=== PATIENT | female | born 1975 | race Two or more races ===

== ENCOUNTER → 2017-02-07 | Outpatient (CLI) | payer OTHER ==
[2017-02-07 08:49] LABS: Urine Bilirubin Negative (Negative); Urine Blood TRACE /uL (Negative); Urine Color Yellow (Yellow); Urine Glucose Normal (Normal); Urine Ketone Negative (Negative); Urine Mucus FEW (None Seen); Urine Nitrite Negative (Negative); Urine RBC 1 /hpf (0 - 4); Urine Squamous Epithelial Cell FEW /hpf (<5); Urine Urobilinogen Normal (Negative)
[2017-02-07 09:16] LABS: Albumin 3.7 g/dL (3.4-5.0); BUN/Creatinine Ratio 27.3; Bilirubin, Total 0.6 mg/dL (0.2-1.0); Calcium 8.7 mg/dL (8.5-10.1); Potassium 3.9 mmol/L (3.5-5.1); Total Protein 7.5 g/dL (6.4-8.2)
== END | disposition home or self-care (01) ==
LOC: LAB 08:07
PROVIDERS: ATTEND Family Medicine
DX: I10 Essential (primary) hypertension (principal); E78.5 Hyperlipidemia, unspecified
CPT/HCPCS: 36415; 80053; 80061; 81001; 82043; 83036; 87086

== ENCOUNTER 2017-03-10 14:48 | Observation (INO) | payer OTHER ==
[~2017-03-10] VITALS: Ht 157.5 cm; Wt 86.2 kg
[2017-03-10 16:05] LABS: Basophils # (auto) 0.1 uL; Basophils % (auto) 0.6 % (0.0-2.0); Eosinophils # (auto) 0.1 uL; Eosinophils % (auto) 0.5 % (0.0-7.0); Hematocrit 43.6 % (36.0-46.0); Hemoglobin 14.9 g/dL (12.2-16.2); Lymphocytes # (auto) 1.4 uL; Lymphocytes % (auto) 11.8 % (10.0-50.0); Mean Corpuscular Hemoglobin 31.8 pg (28.0-32.0); Mean Corpuscular Hgb Conc. 34.2 g/dL (32.0-36.0); Mean Corpuscular Volume 93.1 fL (80.0-100.0); Monocytes % (auto) 8.3 % (0.0-12.0); Neutrophils # (auto) 9.3 uL; Neutrophils % (auto) 78.8 % (37.0-80.0); Platelet Count (auto) 342 10^3/uL (140-450); White Blood Cell 11.8 10^3/uL (4.4-10.8)
[2017-03-10 16:07] LABS: Urine Bilirubin Negative (Negative); Urine Blood 2+ /uL (Negative); Urine Color Yellow (Yellow); Urine Glucose Normal (Normal); Urine Ketone Negative (Negative); Urine Nitrite Negative (Negative); Urine RBC 1 /hpf (0 - 4); Urine Squamous Epithelial Cell FEW /hpf (<5); Urine Urobilinogen Normal (Negative)
[2017-03-10 16:22] LABS: Albumin 3.7 g/dL (3.4-5.0); BUN/Creatinine Ratio 12.8; Bilirubin, Total 0.5 mg/dL (0.2-1.0); Calcium 8.8 mg/dL (8.5-10.1); Potassium 4.2 mmol/L (3.5-5.1); Total Protein 7.6 g/dL (6.4-8.2)
[2017-03-10] MEDS ORDERED: SODIUM CHLORIDE 0.9% 1,000 ML IVB ONE (18:07)
[2017-03-10] MEDS ORDERED: KETOROLAC TROMETH 30 MG/ML 1ML VIAL IV ONE (18:15)
[2017-03-10] MEDS ORDERED: ONDANSETRON HCL 4 MG/2 ML VIAL IV ONE (18:15)
[2017-03-10 19:22] LABS: INR 0.94 (0.9-1.15); Prothrombin Time 10.2 sec (9.37-12.3)
[2017-03-10 20:20] VITALS: BP 139/64
== END 2017-03-10 21:36 | disposition home or self-care (01) | DRG 690 ==
LOC: ER 14:48 → OVERFLOW 18:08 → ER 21:36
PROVIDERS: ADMIT Family Medicine; ATTEND Family Medicine
DX: N39.0 Urinary tract infection, site not specified (principal); K76.0 Fatty (change of) liver, not elsewhere classified
CPT/HCPCS: 36415; 71010; 74176; 80053; 81001; 81025; 82150; 83690; 83735; 85025; 85610; 85730; 96361; 96374; 96375; 99285; G0378; J1885; J2405

== ENCOUNTER 2018-06-11 15:45 | Emergency (ER) | payer OTHER ==
[~2018-06-11] VITALS: Ht 160 cm; Wt 83.9 kg
[2018-06-11 16:07] VITALS: BP 165/99
[2018-06-11] MEDS ORDERED: KETOROLAC TROMETH 60MG/2ML VIAL IM ONE (17:00)
== END 2018-06-11 17:08 | disposition home or self-care (01) ==
LOC: ER 15:48
DX: J01.00 Acute maxillary sinusitis, unspecified (principal); E23.6 Other disorders of pituitary gland; I10 Essential (primary) hypertension
CPT/HCPCS: 70450; 96372; 99284; J1885

== ENCOUNTER → 2020-07-21 | Outpatient (CLI) | payer OTHER ==
[2020-07-21 08:20] LABS: Basophils # (auto) 0.1 10 ^3/uL (0-0.2); Eosinophils # (auto) 0.1 10 ^3/uL (0-0.8); Eosinophils % (auto) 2.2 % (0.0-7.0); Hematocrit 42.8 % (36.0-46.0); Hemoglobin 14.8 g/dL (12.2-16.2); Mean Corpuscular Hemoglobin 31.9 pg (28.0-32.0); Mean Corpuscular Hgb Conc. 34.5 g/dL (32.0-36.0); Mean Corpuscular Volume 92.5 fL (80.0-100.0); Monocytes # (auto) 0.4 10 ^3/uL (0-1.3); Monocytes % (auto) 6.1 % (0.0-12.0); Neutrophils # (auto) 3.6 10 ^3/uL (1.6-8.6); Neutrophils % (auto) 57.7 % (37.0-80.0); Nucleated Red Blood Cells % 0.1 %; Platelet Count (auto) 381 10^3/uL (140-450); Red Blood Cells 4.63 10^6/uL (4.0-5.20); Red Cell Distribution Width 13.6 % (11.8-14.3); White Blood Cell 6.2 10^3/uL (4.4-10.8)
[2020-07-21 08:51] LABS: Potassium 3.8 mmol/L (3.5-5.1)
[2020-07-21 08:56] LABS: BUN/Creatinine Ratio 22.5; Bilirubin, Total 0.4 mg/dL (0.2-1.0); Total Protein 8.2 g/dL (6.4-8.2)
== END | disposition home or self-care (01) ==
LOC: LAB 07:54
PROVIDERS: ATTEND Student in an Organized Health Care Education/Training Program
DX: I10 Essential (primary) hypertension (principal); R10.13 Epigastric pain; M25.50 Pain in unspecified joint
CPT/HCPCS: 36415; 80053; 80061; 83036; 83690; 84443; 85025; 85652

== ENCOUNTER 2023-07-01 08:32 | Emergency (ER) | payer MEDICAID, OTHER ==
[~2023-07-01] VITALS: Ht 157.5 cm; Wt 84.9 kg
[2023-07-01 09:34] LABS: Basophils # (auto) 0 10 ^3/uL (0-0.2); Basophils % (auto) 0.6 % (0.0-2.0); Eosinophils # (auto) 0.2 10 ^3/uL (0-0.8); Eosinophils % (auto) 2.6 % (0.0-7.0); Hematocrit 44.9 % (36.0-46.0); Hemoglobin 15.1 g/dL (12.2-16.2); Lymphocytes # (auto) 1.5 10 ^3/uL (0.4-5.4); Lymphocytes % (auto) 25.4 % (10.0-50.0); Mean Corpuscular Hemoglobin 31.1 pg (28.0-32.0); Mean Corpuscular Hgb Conc. 33.5 g/dL (32.0-36.0); Mean Corpuscular Volume 92.9 fL (80.0-100.0); Monocytes # (auto) 0.6 10 ^3/uL (0-1.3); Monocytes % (auto) 10.9 % (0.0-12.0); Neutrophils # (auto) 3.6 10 ^3/uL (1.6-8.6); Neutrophils % (auto) 60.5 % (37.0-80.0); Red Blood Cells 4.84 10^6/uL (4.0-5.20); Red Cell Distribution Width 13.8 % (11.8-14.3); White Blood Cell 5.9 10^3/uL (4.4-10.8)
[2023-07-01 09:42] LABS: Urine Bacteria FEW /hpf (None Seen); Urine Blood Negative /uL (Negative); Urine Clarity HAZY (Clear); Urine Color Yellow (Yellow); Urine Mucus FEW (None Seen); Urine Protein, UAD Negative (Negative); Urine Urobilinogen Normal (Negative); Urine WBC 2 /hpf (0 - 5); Urine pH 5.5 (5.0-8.0)
[2023-07-01 09:45] LABS: Alanine Aminotransferase 40 U/L (7-40); Albumin 4.5 g/dL (3.2-4.8); Alkaline Phosphatase 78 U/L (46-116); Anion Gap 11 (5-15); Aspartate Aminotransferase 29 U/L (13-40); BUN/Creatinine Ratio 17.1 (10.0-20.0); Blood Urea Nitrogen 12 mg/dL (9-23); Carbon Dioxide 20 mmol/L (20-30); Chloride 107 mmol/L (98-107); Glucose 97 mg/dL (74-106); Potassium 3.8 mmol/L (3.5-5.1); Sodium 138 mmol/L (136-145)
[2023-07-01 09:46] LABS: Bilirubin, Total 0.3 mg/dL (0.2-1.0); Total Protein 7.2 g/dL (5.7-8.2)
[2023-07-01] MEDS ORDERED: SODIUM CHLORIDE 0.9% 1,000 ML IV ONE (11:15)
[2023-07-01 11:34] VITALS: BP 147/95; PULSE 80; RESP 17; TEMP 97.7; O2SAT 100
[2023-07-01 11:34] LABS: Magnesium 1.8 mg/dL (1.6-2.6)
[2023-07-01] MEDS ORDERED: BISM262C44 PO (11:44)
[2023-07-01] MEDS ORDERED: METO-281 PO (11:44)
== END 2023-07-01 12:47 | disposition home or self-care (01) ==
LOC: ER 08:32
DX: K52.9 Noninfective gastroenteritis and colitis, unspecified (principal); I10 Essential (primary) hypertension
CPT/HCPCS: 36415; 74176; 80053; 81001; 83690; 83735; 85025; 96360; 99284; J7030

== ENCOUNTER 2023-08-10 12:58 | Emergency (ER) | payer MEDICAID ==
[~2023-08-10] VITALS: Ht 160 cm; Wt 81.1 kg
[~2023-08-10 12:58] MED LIST: BISM262C44 PO; METO-281 PO
[2023-08-10 16:02] VITALS: BP 173/90; PULSE 73; RESP 16; TEMP 97.5; O2SAT 99
[2023-08-10] MEDS ORDERED: NAP500T PO (17:23)
[2023-08-10] MEDS ORDERED: CYCL-839 PO (17:23)
[2023-08-10] MEDS ORDERED: KETOROLAC TROMETH 30 MG/ML 1ML VIAL IM ONE (17:30)
== END 2023-08-10 17:29 | disposition home or self-care (01) ==
LOC: ER 12:58
DX: S83.91XA Sprain of unspecified site of right knee, initial encounter (principal); I10 Essential (primary) hypertension; Z79.899 Other long term (current) drug therapy; X50.1XXA Overexertion from prolonged static or awkward postures, initial encounter; Y93.89 Activity, other specified; Y92.89 Other specified places as the place of occurrence of the external cause; Y99.8 Other external cause status
CPT/HCPCS: 73562

== ENCOUNTER → 2024-08-20 | Outpatient (CLI) | payer MEDICAID ==
[~2024-08-20] VITALS: Ht 162.6 cm; Wt 86.2 kg
[~2024-08-20] MED LIST changes: +CYCL-839 PO; +NAP500T PO
[2024-08-20] MEDS: REGADENOSON 0.4 MG/5 ML SYRG IV ONE ×2 (10:21→10:23)
--- NOTE | 2024-08-20 15:45 | DVHSR ---
APPROVED REPORT Exam: Nuclear Stress Test Indication: Chest pain BMI: 0 Medical History Allergies: No known drug allergies Stress Test Details Stress Test: Pharmacologic stress testing performed using 0.4 mg of regadenoson per 5 mL given IV ov er 10 seconds. HR Resting HR: 81 bpmMax Heart Rate (APMHR): 170.157996 bpm Max HR Achieved: 139 bpmTarget HR (85% APMHR): 144.644863 bpm % of APMHR: 81.76 Recovery HR: 92 bpm BP Resting BP: 153/90 mmHg Recovery BP: 123/61 mmHg ECG Resting ECG: Sinus Rhythm Clinical Reason for Termination: Completed protocol Nurse Comments Recieved pt. from [email or web address]. A/Ox4 on RA. Connected to cardiac exercise specialist, VS stable. PIV flushes well. Reviewed POC. Pt. verbalized understanding of procedure including risks and side ef fects, agrees for stress testing. Lexiscan stress test performed per protocol. tok tok tok administered Cardiolite. Pt. tolerated well . Pt. stable, no change on exam. VS returned to baseline. Transferred to [email or web address] via wheelchair w/ te ch. Stress ECG Conclusion lvef 51% which is low normal normal perfusion, no ischemia PVCs noted on stress portion of ECG NM EXAM: Myocardial Perfusion REST/STRESS Imaging Protocol: Rest Tc-99m/Stress Tc-99m 1 day Resting Data Rest SPECT myocardial perfusion imaging was performed in supine position 60 minutes following the int ravenous injection of 12.2 mCi of Tc-99m Sestamibi. Time of rest injection: 851 Time of rest imagin Administration Route: IV Administration Site: Left Arm Pharmacologic Stress Pharmacologic stress test was performed by injecting Regadenoson 0.4 mg IV push followed by the intra venous injection of 33.5 mCi of Tc-99m Sestamibi. Time of stress injection: 1022 Time of stress imagin Administration Route: IV Administration Site: Left Arm Gated Stress SPECT was performed 60 minutes after stress injection. The images were gated to evaluate regional wall motion and calculate left ventricular ejection fracti on. Stress only was performed in the Supine position. Nuclear Conclusion ECG Findings: equivocal Nuclear Findings: negative for ischemia lvef 51% which is low normal normal perfusion, no ischemia PVCs noted on stress portion of ECG
== END | disposition home or self-care (01) ==
LOC: XYW 08:26
PROVIDERS: ATTEND Internal Medicine
DX: R07.9 Chest pain, unspecified (principal)
CPT/HCPCS: 78452; 93017; A9500; J2785

== ENCOUNTER 2025-05-22 09:18 | Emergency (ER) | payer MEDICAID ==
[~2025-05-22] VITALS: Ht 157.5 cm; Wt 76.4 kg
--- NOTE | 2025-05-22 11:16 | ED.PDOC ---
History of Present Illness HPI Comments 49 y.o Female with PMHX of preDM and HTN, presents to the ED for a chief complaint of pelvic pain radiating to her back and lower extremity. Patient reports previous pain x 1-2 weeks ago that subsided the same day, however states this time around, pain has been constant and sharp in nature with new onset of abdominal bloating. She mentions taking OTC pain medication relieving back pain however still presents with the pelvic pain. She denies any recent trauma, vaginal bleeding, dysuria, hematuria, abdominal pain, nausea, vomiting, or diarrhea. Chief Complaint: Pelvic Pain Time Seen by MD: 10:51 Primary Care Provider: NONE Reviewed Notes: Nurses Notes, Medications, Allergies Allergies: Coded Allergies: No Known Drug Allergy (Verified Allergy, Unknown, 08/20/24) Home Meds Active Scripts Naproxen (NAPROSYN TABLET) 500 Mg Tb, 1 TAB PO BID PRN, #30 TAB 0 Refills Prov:STAR HINES INSERTING OPERATOR 08/10/23 Cyclobenzaprine Hcl (Cyclobenzaprine Hcl) 10 Mg Tab, 10 MG PO TID, #12 TAB 0 Refills Prov:STAR HINES INSERTING OPERATOR 08/10/23 Metoclopramide Hcl (Reglan) 10 Mg Tab, 10 MG PO BID for 5 Days, #10 TAB Prov:JOLANTA SINGH MD 07/01/23 Bismuth Subsalicylate (PEPTO-BISMOL TO-GO) 262 Mg Chw, 262 MG PO TID for 10 Days, #30 TAB.CHEW Prov:JOLANTA SINGH MD 07/01/23 Information Source: Patient Mode of Arrival: Ambulatory Severity: Moderate Timing: Days (2) Duration: Since onset Past Medical History PAST MEDICAL HISTORY: HTN Past Medical History (Other): PreDM Surgical History: Denies all surgeries [employer] History: Denies all [employer]IL[employer] Hx Family History Family History: Unknown Social History Smoker: Non-Smoker Alcohol: Denies ETOH Use Drugs: Denies Drug Use Lives In: Home Constitutional: denies: chills, diaphoresis, fatigue, fever, malaise, sweats, weakness, others EENTM: denies: blurred vision, double vision, ear bleeding, ear discharge, ear drainage, ear pain, ear ringing, eye pain, eye redness, hearing loss, mouth pain, mouth swelling, nasal discharge, nose bleeding, nose congestion, nose pain, photophobia, tearing, throat pain, throat swelling, voice changes, others Respiratory: denies: cough, hemoptysis, orthopnea, SOB at rest, shortness of breath, SOB with excertion, stridor, wheezing, others Cardiovascular: denies: chest pain, dizzy spells, diaphoresis, Dyspnea on exertion, edema, irregular heart beat, left arm pain, lightheadedness, palpitations, PND, syncope, others Genitourinary: reports: pain; denies: abnormal vagina bleeding, burning, dyspareunia, dysuria, flank pain, frequency, hematuria, incontinence, , vagina discharge, urgency, others Neurological: denies: dizziness, fainting, headache, left sided numbness, left sided weakness, numbness, paresthesia, pre-existing deficit, right sided numbness, right sided weakness, seizure, speech problems, tingling, tremors, weakness, others Musculoskeletal: reports: back pain; denies: gout, joint pain, joint swelling, muscle pain, muscle stiffness, neck pain, others Integumetry: denies: bruises, change in color, change in hair/nails, dryness, laceration, lesions, lumps, rash, wounds, others Allergic/Immunocompromised: denies: Difficulty Healing, Frequent Infections, Hives, Itching, others Hematologic/Lymphatic: denies: anemia, blood clots, easy bleeding, easy bruising, swollen glands, others Endocrine: denies: excessive hunger, excessive sweating, excessive thirst, excessive urination, flushing, intolerance to cold, intolerance to heat, unexplained weight gain, unexplained weight loss, others Psychiatric: denies: anxiety, bipolar disorder, depression, hopeless, panic disorder, schizophrenia, sleepless, suicidal, others All Other Systems: Reviewed and Negative Physical Exam General Appearance: No Apparent Distress, Normal HEENT: Normal ENT Inspection, Pharynx Normal, TMs Normal Neck: Full Range of Motion, Non-Tender, Normal, Normal Inspection Respiratory: Chest Non-Tender, Lungs Clear, No Accessory Muscle Use, No Respiratory Distress, Normal Breath Sounds Cardiovascular: No Edema, No JVD, No Murmur, No Gallop, Normal Peripheral Pulses, Regular Rate/Rhythm Breast Exam: Deferred Gastrointestinal: No Organomegaly, Non Tender, No Pulsatile Mass, Normal Bowel Sounds, Soft Genitalia: Deferred Pelvic: Deferred Rectal: Deferred Extremities: No calf tenderness, Normal capillary refill, Normal inspection, Normal range of motion, Non-tender, No pedal edema Musculoskeletal : Apperance: Normal Neurologic: Alert, pit clerk II-XII nml as Tested, No Motor Deficits, Normal Affect, Normal Mood, No Sensory Deficits Cerebellar Function: Normal Reflexes: Normal Skin: Dry, Normal Color, Warm Lymphatic: No Adenopathy Was a procedure done? Was a procedure done?: No Differential Dx Considerations may include: PID, UTI, Gastroenteritis, Gastritis, DJD, strain ,sprain X-Ray, Labs, Meds, VS Vital Signs Date Time Temp Pulse Resp B/P (MAP) Pulse Ox O2 Delivery O2 Flow Rate FiO2 05/22/25 14:37 97.8 70 18 124/84 (97) 100 97.8 05/22/25 11:42 98.2 71 18 124/75 (91) 98 98.2 05/22/25 11:42 71 18 98 Room Air 05/22/25 09:25 98.0 79 16 126/94 98 98.0 Lab Test 05/22/25 13:04 05/22/25 11:20 Range/Units Urine Color Light-yellow Yellow Urine Clarity Clear Clear Urine pH 5.5 5.0-9.0 Urine Specific [place] 1.013 1.001-1.035 Urine Protein Negative Negative Urine Ketones 2+ H Negative Urine Blood Negative Negative /uL Urine Nitrite Negative Negative Urine Bilirubin Negative Negative Urine Urobilinogen Normal Negative mg/dL Urine Leukocyte Esterase Negative Negative /uL Urine RBC 1 0 - 4 /hpf Urine Microscopic WBC 1 0-5 /HPF Urine Squamous Epithelial Cells Few <5 /hpf Urine Bacteria None seen None Seen /hpf Urine Mucus Few None Seen Urine Glucose Normal Normal mg/dL White Blood Count 5.8 4.4-10.8 10^3/uL Red Blood Count 4.60 4.0-5.20 10^6/uL Hemoglobin 14.6 12.2-16.2 g/dL Hematocrit 42.4 36.0-46.0 % Mean Corpuscular Volume 92.3 80.0-100.0 fL Mean Corpuscular Hemoglobin 31.7 28.0-32.0 pg Mean Corpuscular Hemoglobin Concent 34.3 32.0-36.0 g/dL Red Cell Distribution Width 14.1 11.8-14.3 % Platelet Count 400 140-450 10^3/uL Mean Platelet Volume 8.1 6.9-10.8 fL Neutrophils (%) (Auto) 55.9 37.0-80.0 % Lymphocytes (%) (Auto) 32.1 10.0-50.0 % Monocytes (%) (Auto) 8.0 0.0-12.0 % Eosinophils (%) (Auto) 3.1 0.0-7.0 % Basophils (%) (Auto) 0.9 0.0-2.0 % Neutrophils # (Auto) 3.2 1.6-8.6 10 ^3/uL Lymphocytes # (Auto) 1.9 0.4-5.4 10 ^3/uL Monocytes # (Auto) 0.5 0-1.3 10 ^3/uL Eosinophils # (Auto) 0.2 0-0.8 10 ^3/uL Basophils # (Auto) 0.1 0-0.2 10 ^3/uL Nucleated Red Blood Cells 0.3 % Sodium Level 141 136-145 mmol/L Potassium Level 3.6 3.5-5.1 mmol/L Chloride Level 101 98-107 mmol/L Carbon Dioxide Level 29 20-31 mmol/L Anion Gap 11 5-15 Blood Urea Nitrogen 11 9-23 mg/dL Creatinine 0.72 0.550-1.02 mg/dL Glomerular Filtration Rate Calc 101 >90 mL/min BUN/Creatinine Ratio 15.3 10.0-20.0 Serum Glucose 83 74-106 mg/dL Calcium Level 9.9 8.7-10.4 mg/dL Current Medications Medications (Trade) Dose Ordered Sig/Michela Route Start Time Stop Time Status Last Admin Ketorolac Tromethamine (Toradol Injection) 15 mg ONCE ONCE IM 05/22/25 14:45 05/22/25 14:46 DC 05/22/25 14:43 Time of 1ST Reevaluation: 11:13 Reevaluation 1ST: Unchanged Patient Education/Counseling: Diagnosis, Treatment, Prognosis Family Education/Counseling: No Family Present SEPSIS Sepsis Screen Date sepsis recognized/suspect: May 22, 2025 Time Sepsis recognized/suspect: 924 Recent Procedure: No On Antibiotic Therapy: No Respiratory Rate >20: No Heart Rate >90: No Temp<36 C (96.8 F) or >38.3 C: No SBP <90 or MAP <65 mmHG: No New Acute Mental Status Change: No Is the patient on CPAP, BIPAP,: No Vital Signs Date Time Temp Pulse Resp B/P (MAP) Pulse Ox O2 Delivery O2 Flow Rate FiO2 05/22/25 14:37 97.8 70 18 124/84 (97) 100 97.8 05/22/25 11:42 98.2 71 18 124/75 (91) 98 98.2 05/22/25 11:42 71 18 98 Room Air 05/22/25 09:25 98.0 79 16 126/94 98 98.0 Laboratory Tests Test 05/22/25 11:20 White Blood Count 5.8 10^3/uL (4.4-10.8) Medications Medications Dose Ordered Sig/Michela Route Start Time Stop Time Status Last Admin Dose Admin Ketorolac Tromethamine 15 mg ONCE ONCE IM 05/22/25 14:45 05/22/25 14:46 DC 05/22/25 14:43 Departure 1 Departure Time of Disposition: 14:52 (Patient's workup is benign. In my judgment the patient has a ovarian cysts given her history. We will discharge patient home with outpatient follow up) Impression: Primary Impression: Right flank pain Disposition: 01 HOME / SELF CARE / HOMELESS Condition: Stable Additional Instructions: Your workup today was benign including normal labs and normal UA. You were prescribed pain medication. Please take as directed. If your symptoms worsen or if any other concerns please return to the emergency room e-Prescriptions Hydrocodone-Acetaminophen (Hydrocodone Bitartrate/AC 5-325 mg) 1 Tab Tab 1 TAB PO QID PRN for 4 Days, #16 TAB Prov: JULIO ABBASI MD 05/22/25 Discharged With: Self Critical Care Note Critical Care Time?: No Stability Stability form required: No I personally scribed for JULIO ABBASI MD ([facility]) on 05/22/25 at 11:16. Electronically submitted by Tamra Zhou ([facility]). JULIO ABBASI MD May 22, 2025 11:16
[2025-05-22 11:48] LABS: Hematocrit 42.4 % (36.0-46.0); Hemoglobin 14.6 g/dL (12.2-16.2); Mean Corpuscular Hemoglobin 31.7 pg (28.0-32.0); Mean Corpuscular Volume 92.3 fL (80.0-100.0); Nucleated Red Blood Cells % 0.3 %
[2025-05-22 12:10] LABS: Chloride 101 mmol/L (98-107); Potassium 3.6 mmol/L (3.5-5.1); Sodium 141 mmol/L (136-145)
[2025-05-22 12:11] LABS: Anion Gap 11 (5-15); Carbon Dioxide 29 mmol/L (20-31)
[2025-05-22 12:12] LABS: Calcium 9.9 mg/dL (8.7-10.4)
[2025-05-22 12:16] LABS: BUN/Creatinine Ratio 15.3 (10.0-20.0); Blood Urea Nitrogen 11 mg/dL (9-23); Glucose 83 mg/dL (74-106)
[2025-05-22 13:38] LABS: Urine Protein, UAD Negative (Negative)
[2025-05-22] MEDS ORDERED: KETOROLAC TROMETH 30 MG/ML 1ML VIAL ONE (14:35)
[2025-05-22 14:37] VITALS: BP 124/84; PULSE 70; RESP 18; TEMP 97.8
[2025-05-22] MEDS: KETOROLAC TROMETH 30 MG/ML 1ML VIAL IM ONE (14:43)
[2025-05-22] MEDS ORDERED: HYDR-4902 PO (14:53)
[2025-05-22 15:01] VITALS: O2SAT 99
== END 2025-05-22 15:02 | disposition home or self-care (01) ==
LOC: ER 09:18
DX: R10.20 Pelvic and perineal pain unspecified side (principal); I10 Essential (primary) hypertension; Z79.899 Other long term (current) drug therapy
CPT/HCPCS: 36415; 80048; 81001; 85025; 96372; 99283; J1885